=== PATIENT | male | born 1985 | race Caucasian/White ===

== ENCOUNTER 2019-01-17 01:12 | Emergency (ER) | payer OTHER ==
[~2019-01-17] VITALS: Ht 182.9 cm; Wt 111.1 kg
[2019-01-17 02:05] LABS: BASOPHIL % 0.1 % (0-2); PLATELET COUNT 215 x10^3mcL (130-400); RED CELL DISTRIBUTION WIDTH 13.2 % (11.5-14.5)
[2019-01-17 02:13] LABS: CALCIUM 8.5 mg/dL (8.5-10.1); CARBON DIOXIDE 27.7 mmol/L (21-32); CHLORIDE SERUM 99 mmol/L (98-107); GFR1 > 60 mL/min; GLUCOSE SERUM 120 mg/dL (74-106); POTASSIUM SERUM 3.8 mmol/L (3.5-5.1); SODIUM SERUM 137 mmol/L (136-145)
[2019-01-17 02:18] LABS: ALBUMIN 3.5 g/dL (3.4-5.0); ALKALINE PHOSPHATASE 77 U/L (46-116); ALT/SGPT 67 U/L (16-63); AST/SGOT 35 U/L (15-37); BILIRUBIN TOTAL 1.1 mg/dL (0.20-1.00); LIPASE 43 IU/L (73-393); TOTAL PROTEIN, SERUM 7.4 g/dL (6.4-8.2)
[2019-01-17 03:26] VITALS: BP 120/66
== END 2019-01-17 03:26 | disposition home or self-care (01) ==
LOC: ED 01:12
PROVIDERS: Emergency Medicine
DX: R10.84 Generalized abdominal pain (principal); F17.210 Nicotine dependence, cigarettes, uncomplicated
CPT/HCPCS: 36415; J0500; J1885; Q0092

== ENCOUNTER 2019-01-18 18:34 | Inpatient (IN) | payer OTHER ==
[~2019-01-18] VITALS: Ht 193 cm; Wt 106.6 kg
[2019-01-18 18:41] VITALS: Ht 193 cm; Wt 106.6 kg
--- NOTE | 2019-01-18 19:50 | NUR ---
PT PRESENTS TO ED WITH C/O BL LOWER ABDOMINAL PAIN. PT STATES THAT HE WAS HERE TWO DAYS AGO AND THEY DIAGNOSED HIM WITH CONSTIPATION AND GAVE HIM SOMETHING FOR IT AND SENT HIM HOME. PT STATES THAT THE PAIN NEVER WENT AWAY AND NOW HE IS HAVING DIARRHEA AND NAUSEA/VOMITING. PT STATES THAT HE HAS NEVER FELT "THIS BAD" PT ALSO STATES THAT THE PAIN SOMETIMES RADIATES TO HIS TESTICLES. PT ABDOMEN IS SOFT/FLAT. PT ALSO HAS TWO SUPERFICIAL LACERATIONS TO L FA THAT APPEAR TO BE IN THE HEALING STAGES. PT SPEAKING IN CLEAR AND FULL SENTENCES. NAD AT THIS TIME. PT CONNECTED TO BP AND PULSE OX MONITORS
--- NOTE | 2019-01-18 19:52 | NUR ---
CALL LIGHT WITHIN REACH
[2019-01-18 19:53] LABS: BASOPHIL % 0.3 % (0-2); PLATELET COUNT 208 x10^3mcL (130-400); RED CELL DISTRIBUTION WIDTH 12.8 % (11.5-14.5)
[2019-01-18 19:53] LABS: UA SPECIFIC GRAVITY 1.025 (1.005-1.035); microscopic required? YES; urine erythrocyte 1+ (NEGATIVE)
[2019-01-18 19:57] LABS: ALKALINE PHOSPHATASE 75 U/L (46-116); ALT/SGPT 40 U/L (16-63); AST/SGOT 14 U/L (15-37); BILIRUBIN TOTAL 0.8 mg/dL (0.20-1.00); CALCIUM 8.7 mg/dL (8.5-10.1); CARBON DIOXIDE 23.1 mmol/L (21-32); CHLORIDE SERUM 94 mmol/L (98-107); GFR1 > 60 mL/min; GLUCOSE SERUM 101 mg/dL (74-106); SODIUM SERUM 131 mmol/L (136-145); TOTAL PROTEIN, SERUM 7.8 g/dL (6.4-8.2)
[2019-01-18 20:07] LABS: POTASSIUM SERUM 2.8 mmol/L (3.5-5.1)
--- NOTE | 2019-01-18 20:27 | NUR ---
REPORT GIVEN TO JANIYA PEACE
--- NOTE | 2019-01-18 21:44 | NUR ---
REPORT GIVEN TO NATA RODRIGUEZ TO ASSUME CARE
--- NOTE | 2019-01-18 21:48 | NUR ---
PT TO OR AT THIS TIME. CONSENT SIGNED AND PLACED IN CHART; OR CHECKLIST INITIATED AND PLACED IN CHART.
--- NOTE | 2019-01-18 23:50 | NUR ---
RECEIVED PT VIA [facility] FROM O/R, ACCOMPANIED BY NURSE AND PT'S . PT DROWSY, ORIENTED X 4, COOPERATIVE TO CARE; GARBLED SPEECH, C/O INTERMITTENT THROBBING H/A 8/10. GENERALIZED WEAKNESS, BUT ABLE TO SLIDE HIMSELF FROM GUERNEY TO BED. DENIES CHEST PAIN OR DISCOMFORT AT THIS TIME. NO ACUTE RESPIRATORY DISTRESS. ABD SOFT, FLAT, TENDERNESS UPON PALPATION TO BLQ, HYPOACTIVE BOWEL SOUNDS X 4 QUADS, LAST BM 01/18/19, DIARRHEA; BLQ SHARP PAIN OF 2/10 INCREASES TO 8/10 WHEN MOVING/TWISTING BODY. 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 IV SITE RAC 20G, CDI. ORIENTED PT AND TO ROOM, BED CONTROLS, CALL LIGHT SYSTEM. SIDE RAILS UP X 2, BED IN LOW POSITION. WILL ENDORSE TO NATA RODRIGUEZ.
[2019-01-19 00:22] VITALS: BP 139/88
--- NOTE | 2019-01-19 01:13 | NUR ---
PT CURRENTLY RESTING IN BED WITH EYES CLOSED. NO USE OF ACCESSORY MUSCLES OR LABORED BREATHING NOTED. PT STARTED ON NS@ 100ML/HR. PT ANSWER TO VOCAL STIMULATION.
--- NOTE | 2019-01-19 04:20 | NUR ---
PT COMPLAINING OF PAIN. NO PRN MEDICATIONS ORDERED. PAGED DR HANSON AWAITING CALL BACK.
--- NOTE | 2019-01-19 04:55 | NUR ---
2 MG OF DILAUDID GIVEN FOR PAIN 10/10 IN ABDOMEN. BP: 120/80 HR: 68 RR:16
--- NOTE | 2019-01-19 05:21 | NUR ---
EDUCATED PT ON THE NEED TO AMBULATE IN ORDER TO PROMOTE PERISTALSIS. PT DOES NOT WANT TO AMBULATE AT THIS TIME.
[2019-01-19 05:33] VITALS: BP 128/88
--- NOTE | 2019-01-19 08:00 | NUR ---
RECEIVED PATIENT WITH THREE BANDAIDS IN PLACE AND S/P APPENDECTOMY LAST NIGHT. DR JACKSON PREFORMED THE PROCEDURE. PATIENT HAS BEEN AMBULATORY AND TOLERATE THE CLEAR LIQUID DIET AND IS PASSING GAS. IV ANTIBIOTICS CONTINUED AND TOLERATE WELL AND WITH NO ADVERSE REACTION. SENG COLES BENE WITHOUT ANY REQUESTS OF PAIN MEDICATION AND HAD RECEIVED DILAUDID OVER NIGHT. PATIENT HAS PULSES PALPABLE AND STRONG. VITALS AT THIS TIME AT 98.5, 66, 97/56, 97% ON ROOM AIR. SOME KETONES, BLOOD AND PROTEIN NOTED IN THE URINE. PATIENT HAS HAS DIARRHEA TODAY. WILL CONTINUE TO MONITOR INDICATED.
[2019-01-19 09:26] VITALS: BP 97/56
--- NOTE | 2019-01-19 10:00 | NUR ---
WALKING THE HALLWAY AND GAIT IS STEADY. NO DRAINAGE EXCEPT OLD TO WOUMD SITES.
--- NOTE | 2019-01-19 12:00 | NUR ---
PATIENT WANTS TO SHOWER. ON READING THE NOTES OF THE SURGEON ADVISED THE PATIENT THAT HIS SURGERY WAS JUST AT MIDNIGHT THE NIGHT BEFORE AND THAT HE NEEDS TO ALLOW THIS NOT TO BE DISTURBED FOR A DAY PRIOR TO CHANGING OR BATHING TO REDUCE INFECTION AND WOUND DISTURBANCE. PATIENT HAS BEEN WANTING MORE FOOD AND ADVISED THE PATIENT OF THE INDICATION OF THE DIET OFFERED. PATIENT HAS BEEN TOLD ABOUT THE SERIOUSNESS OF THE RUPTURED APPENDIX AND THE GANGRENOUS STATE OF THE APPENDIX. PATIENT LISTENS BUT IS WANTING FOOD AND A SHOWER JUST THE SAME. TOLERATED THE DIET OFFERED SO FAR. DILAUDID GIVEN EARLIER WAS EFFECTIVE. SIGNIFICANT OTHER AT BEDSIDE AND AT THIS TIME SUPPORTIVE WITH CARE.
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
--- NOTE | 2019-01-19 15:28 | NUR ---
STARTED DIALSYIS AND WILL CONTINUE TO MONITOR IDNICATE.
== END 2019-01-19 14:47 | disposition left against medical advice (07) | DRG 339 ==
LOC: ED 18:34 → MU 20:36
PROVIDERS: Emergency Medicine; Surgery; ADMIT Internal Medicine Pulmonary Disease
PROC: 0DTJ4ZZ Resection of Appendix, Percutaneous Endoscopic Approach (ICD-10-PCS; principal; 2019-01-18 22:00)
DX: K35.32 Acute appendicitis with perforation, localized peritonitis, and gangrene, without abscess (principal); E87.1 Hypo-osmolality and hyponatremia; E87.6 Hypokalemia; D72.829 Elevated white blood cell count, unspecified; Z53.29 Procedure and treatment not carried out because of patient's decision for other reasons
CPT/HCPCS: G0378; J0330; J1170; J1885; J2250; J2405; J2543; J2704; J2710; J3010; J3480; J3490; J7030; J7120

== ENCOUNTER 2019-02-03 09:25 | Emergency (ER) | payer OTHER ==
[~2019-02-03] VITALS: Ht 193 cm; Wt 105.7 kg
[2019-02-03 09:35] VITALS: BP 119/79; Ht 193 cm; Wt 105.7 kg
== END 2019-02-03 10:31 | disposition home or self-care (01) ==
LOC: ED 09:25
DX: Z48.01 Encounter for change or removal of surgical wound dressing (principal); Z98.890 Other specified postprocedural states; Z90.89 Acquired absence of other organs

== ENCOUNTER 2019-02-04 22:17 | Emergency (ER) | payer OTHER ==
[~2019-02-04] VITALS: Ht 182.9 cm; Wt 106.6 kg
[2019-02-04 22:21] VITALS: Ht 182.9 cm; Wt 106.6 kg
[2019-02-04 22:43] LABS: BASOPHIL % 0.4 % (0-2); PLATELET COUNT 312 x10^3mcL (130-400); RED CELL DISTRIBUTION WIDTH 13.7 % (11.5-14.5)
[2019-02-04 22:58] LABS: ALBUMIN 3.2 g/dL (3.4-5.0); ALKALINE PHOSPHATASE 74 U/L (46-116); ALT/SGPT 40 U/L (16-63); AST/SGOT 22 U/L (15-37); BILIRUBIN TOTAL 0.52 mg/dL (0.20-1.00); CALCIUM 8.2 mg/dL (8.5-10.1); CARBON DIOXIDE 32.2 mmol/L (21-32); CHLORIDE SERUM 106 mmol/L (98-107); CREATININE SERUM 1.2 mg/dL (0.7-1.3); GFR1 > 60 mL/min; GLUCOSE SERUM 100 mg/dL (74-106); PHOSPHOROUS 3.7 mg/dL (2.5-4.9); POTASSIUM SERUM 3.8 mmol/L (3.5-5.1); SODIUM SERUM 143 mmol/L (136-145); TOTAL PROTEIN, SERUM 7.2 g/dL (6.4-8.2)
[2019-02-05 00:58] LABS: AMPHETAMINE QUAL UR POSITIVE (See below)
[2019-02-05 08:14] VITALS: BP 97/58
== END 2019-02-05 08:14 | disposition home or self-care (01) ==
LOC: ED 22:17
PROVIDERS: Emergency Medicine
DX: T43.591A Poisoning by other antipsychotics and neuroleptics, accidental (unintentional), initial encounter (principal); T39.311A Poisoning by propionic acid derivatives, accidental (unintentional), initial encounter; R10.9 Unspecified abdominal pain; F19.10 Other psychoactive substance abuse, uncomplicated; Z90.89 Acquired absence of other organs; Z98.890 Other specified postprocedural states; Y92.89 Other specified places as the place of occurrence of the external cause
CPT/HCPCS: 36415; G0480; J7030